=== PATIENT | female | born 1995 | race Caucasian/White ===

== ENCOUNTER 2018-12-13 22:13 | Emergency (ER) | payer SELFPAY ==
[~2018-12-13] VITALS: Ht 160 cm; Wt 74.8 kg
[2018-12-13 22:41] VITALS: BP 142/64
--- NOTE | 2018-12-13 22:41 | NUR ---
ekg done in triage
--- NOTE | 2018-12-13 22:45 | NUR ---
[facility]
--- NOTE | 2018-12-13 23:13 | NUR ---
PT TO ED WITH C/O CP X 2 DAYS. PT DENIES ANY SOB BUT REPORTS INCREASED ANXIETY AND STRESS OVER 2 DAYS. NO OBVIOUS DISTRESS NOTED. S1 S2 HEARD UPON ASCULTATION, WNL. NO EDEMA. CAP REFILL WNL. PT PLACED INTO BED, PENDING MD HOLM.
--- NOTE | 2018-12-13 23:13 | NUR ---
TO ED 07 WITH STEADY GAIT.
[2018-12-14] MEDS ORDERED: IBUPROFEN 800 MG TAB PO ONE (00:35)
[2018-12-14 00:53] VITALS: BP 107/71
== END 2018-12-14 00:53 | disposition home or self-care (01) ==
LOC: MED 22:13
DX: F41.0 Panic disorder [episodic paroxysmal anxiety] (principal)
CPT/HCPCS: 93005; 99283

== ENCOUNTER 2021-07-23 17:13 | Emergency (ER) | payer MEDICAID ==
[~2021-07-23] VITALS: Ht 160 cm; Wt 78.1 kg
[2021-07-23 17:43] VITALS: BP 106/67
[2021-07-23 18:46] LABS: BASOPHILS % (AUTO) 0.6 % (0.0-2.0); EOSINOPHILS # (AUTO) 0.1 K/uL (0-0.4); HEMATOCRIT 37.8 % (36-48); HEMOGLOBIN 13.3 g/dL (12.0-16.0); LYMPHOCYTES # (AUTO) 1.4 K/uL (2.5-16.5); LYMPHOCYTES % (AUTO) 23.2 % (20.5-51.1); MEAN CORPUSCULAR HEMOGLOBIN 32 pg (27-31); MEAN CORPUSCULAR HGB CONC 35 g/dL (33-37); MONOCYTES # (AUTO) 0.5 K/uL (0.8-1.0); MONOCYTES % (AUTO) 8.5 % (1.7-9.3); NEUTROPHILS # (AUTO) 4.1 K/uL (1.8-7.7); NEUTROPHILS % (AUTO) 65.7 % (42.2-75.2); PLATELET COUNT (AUTO) 271 K/uL (140-450); RED BLOOD CELL COUNT(AUTO) 4.16 MIL/uL (4.20-5.40); RED CELL DISTRIBUTION WIDTH 12.2 % (11.6-13.7); WHITE BLOOD COUNT (AUTO) 6.2 K/uL (4.8-10.8)
--- NOTE | 2021-07-23 20:13 | NUR ---
PT SEEN AND EVALUATED BY DR. DILLON.
[2021-07-23 21:56] LABS: APPEARANCE,URINE CLEAR (CLEAR); BILIRUBIN,URINE NEGATIVE (NEGATIVE); BLOOD, URINE 1+ (NEGATIVE); LEUKOCYTE ESTERASE ,URINE NEGATIVE (NEGATIVE); NITRITE, URINE NEGATIVE (NEGATIVE); PH,URINE 8.5 (5.0-9.0); UGLUCOSE NEGATIVE (NEGATIVE)
[2021-07-23 22:03] LABS: COLOR,URINE YELLOW (YELLOW)
[2021-07-23 22:18] LABS: RBC,URINE 0-5 /HPF (0-5); WBC,URINE 0-5 /HPF (0-5)
--- NOTE | 2021-07-23 22:31 | NUR ---
Patient discharged with v/s stable. Written and verbal after care instructions given and explained. Patient verbalized understanding. Ambulatory with steady gait. All questions addressed prior to discharge. Advised to follow up with PMD.
== END 2021-07-23 22:31 | disposition home or self-care (01) ==
LOC: MED 17:13
DX: O20.0 Threatened abortion (principal); Z3A.10 10 weeks gestation of pregnancy
CPT/HCPCS: 36415; 76817; 81001; 81025; 84702; 85025; 86900; 86901; 87086; 99284; Q0092